=== PATIENT | female | born 1995 | race Caucasian/White ===

== ENCOUNTER 2018-11-01 22:33 | Emergency (ER) | payer MEDICAID ==
--- NOTE | 2018-11-01 23:01 | EDM.PDOC ---
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 was recently diagnosed with pinkeye, complains of itchiness and drainage with mattering - Related Data Allergies Allergy/AdvReac Type Severity Reaction Status Date / Time No Known Allergies Allergy Verified 11/01/18 22:47 Home Meds: Home Meds NK [No Known Home Meds] 10/10/18 [History] Past Medical History HEENT History: Reports: Cataract Psychiatric History: Reports: PTSD - Past Surgical History HEENT Surgical History: Reports: Cataract Surgery Social & Family History - Tobacco Use Smoking Status *Q: Never Smoker - Caffeine Use Caffeine Use: Reports: Coffee, Energy Drinks, Soda ED ROS GENERAL - Review of Systems Review Of Systems: See Below HEENT: Reports: Eye Discharge. Denies: Eye Pain, Vision Change ED EXAM GENERAL W FULL EYE - Physical Exam Exam: See Below Exam Limited By: No Limitations General Appearance: Alert, WD/WN, No Apparent Distress Eye Exam: Bilateral Eye: Conjunctival Injection, EOMI Eyelids: Bilateral: Normal Appearance Conjunctiva & Sclera: Bilateral: Injected Extraocular Movements: Bilateral: Intact Course - Vital Signs Last Recorded V/S: Last Vital Signs Temp 97.6 F 11/01/18 22:51 Pulse 98 11/01/18 22:51 Resp 16 11/01/18 22:51 BP 141/83 H 11/01/18 22:51 Pulse Ox 98 11/01/18 22:51 Departure - Departure Time of Disposition: 23:01 Disposition: Home, Self-Care 01 Condition: Fair Clinical Impression: Conjunctivitis Qualifiers: Conjunctivitis type: acute Acute conjunctivitis type: unspecified Laterality: bilateral Qualified Code(s): H10.33 - Unspecified acute conjunctivitis, bilateral - Discharge Information Referrals: Velvet Awad CNM [Primary Care Provider] - Additional Instructions: Continue using antibiotics until clear, Please followup with your eye care provider in 3-5 days if not better, please call return to the emergency department with worsening of symptoms. - Assessment/Plan Plan: Assessment Acuity = acute Site and laterality = bilateral conjunctivitis Etiology = probable viral cause Manifestations = none Location of injury = Home Lab values = none Plan Placed on gentamicin ophthalmic until clear follow-up with eye care provider in 3-5 days if no improvement This note was dictated using [employer] voice recognition software please call with any questions on syntax or grammar.
== END 2018-11-01 23:08 | disposition home or self-care (01) ==
LOC: JP.ED 22:33
DX: H10.33 Unspecified acute conjunctivitis, bilateral (principal)
CPT/HCPCS: 99283